=== PATIENT | male | born 2000 | race Caucasian/White ===

== ENCOUNTER 2024-09-12 19:24 | Emergency (ER) | payer OTHER, SELFPAY ==
[2024-09-12 19:36] VITALS: BP 157/94; PULSE 87; RESP 18; TEMP 36.4; O2SAT 99
--- NOTE | 2024-09-12 19:47 | ED.EXTPRO ---
HPI - Extremity Problem General Chief complaint: Extremity Problem,Nontraumatic Stated complaint: foot pain Time Seen by Provider: 09/12/24 19:28 Source: patient Mode of arrival: ambulatory Limitations: no limitations History of Present Illness HPI Narrative: 24-year-old male presents to [facility] with complaints of pain, swelling, erythema and warmth to the base of his right great toe for the past 3 days. Patient reports history of gout and symptoms feel similar. Patient reports he was given prednisone at that time and his symptoms quickly resolved. Patient denies injury to his foot. Patient denies fever, body aches, chills, nausea vomiting or diarrhea. MD Complaint: extremity pain and extremity swelling Onset (ago): day(s) (3) Location: right and lower extremity Exacerbating factors: walking Associated symptoms: denies other symptoms Context: history of gout Related Data Home Medications ?Medication ?Instructions ?Recorded ?Confirmed ?Last Taken ?Type azelastine 137 mcg (0.1 %) nasal 1 spray intranasal Q12H 09/12/24 Unknown History spray fluticasone propionate 50 1 spray intranasal ONCE 09/12/24 Unknown History mcg/actuation nasal spray,suspension (Flonase Allergy Relief) Allergies Allergy/AdvReac Type Severity Reaction Status Date / Time No Known Allergies Allergy Verified 09/12/24 19:36 Review of Systems Constitutional: Constitutional: Denies chills, Denies fatigue, Denies fever(s) and Denies weakness ENT: Denies nasal congestion and Denies sore throat Cardiovascular: Cardiovascular: Denies chest pain Respiratory: Respiratory: Denies cough, Denies dyspnea and Denies wheezing Gastrointestinal: Gastrointestinal: Denies diarrhea, Denies nausea and Denies vomiting Musculoskeletal: Musculoskeletal: Reports arthralgias and Reports joint swelling Comments: Pain, swelling, erythema, warmth to base of right great toe Neurologic: Denies syncope and Denies headache(s) PMFSH Comments At time of signature, I agree with nursing past medical, surgical, social and family history. There is no relevant family history pertinent to the presenting complaint. Exam Const: General: healthy appearing and no acute distress Nutritional Appearance: well nourished Orientation/consciousness: patient oriented x3 Limitations: no limitations HENMT: Head: normal to inspection Eyes: Conjunctivae: conjunctivae normal Neck: Neck: normal visual inspection Resp: Effort & Inspection: normal respiratory effort and not labored Auscultation: clear to auscultation bilaterally, no crackles, no rales and no rhonchi Cardio: Rate: regular rate Rhythm: regular rhythm Heart sounds: no murmurs Skin: Wounds: no wounds Neuro: General: patient oriented x3 Speech: normal speech Other: Mild limp noted with ambulation Extrem: Other: There is mild swelling, warmth and erythema noted to base of right great toe representing likely gout. There is no streaking erythema, bruising, bleeding or open wounds noted Psych: Affect: normal affect Attitude: cooperative Course Course Level of Care: Express Care Visit Vital Signs Vital signs: Vital Signs Temperature 36.4 C 09/12/24 19:36 Pulse Rate 87 09/12/24 19:36 Respiratory Rate 18 09/12/24 19:36 Blood Pressure 157/94 H 09/12/24 19:36 Pulse Oximetry 99 09/12/24 19:36 Oxygen Delivery Room Air 09/12/24 19:36 Temperature 36.4 C 09/12/24 19:36 Pulse Rate 87 09/12/24 19:36 Respiratory Rate 18 09/12/24 19:36 Blood Pressure 157/94 H 09/12/24 19:36 Pulse Oximetry 99 09/12/24 19:36 Oxygen Delivery Room Air 09/12/24 19:36 MDM - Extremity (Nontraumatic) MDM Narrative Medical decision making narrative: Patient denies injury. Patient has history of gout symptoms to similar. Will treat patient with prednisone as prednisone worked well for patient the past. Differential Diagnosis Differential diagnosis: Likely cellulitis and other (Contusion) Critical Care Time Critical Care Time Critical Care Time: No Discharge Plan Discharge Clinical Impression: Gout Qualifiers: Gout site: toe Gout etiology: unspecified cause Chronicity: acute Laterality: right Qualified Code(s): M10.9 - Gout, unspecified Patient Disposition: Home, Self-Care Condition: Stable Instructions: Low Purine Diet (ED), Gout (ED) Additional Instructions: Elevate right foot apply cool compresses to area Take med a Dosepak as prescribed Monitor diet closely Follow-up with primary care provider if symptoms not improved Patient Language: Maltese Prescriptions: New methylprednisolone [Medrol (Remigio)] 4 mg tablets,dose pack See Rx Instructions .ROUTE .COMPLEX Qty: 21 0RF Rx Instructions: orally per package directions methylprednisolone [Medrol (Remigio)] 4 mg tablets,dose pack See Rx Instructions .ROUTE .COMPLEX Qty: 21 0RF Rx Instructions: orally per package directions No Action fluticasone propionate [Flonase Allergy Relief] 50 mcg/actuation spray,suspension 1 spray intranasal ONCE Rx Instructions: administer into each nostril azelastine 137 mcg (0.1 %) spray,non-aerosol 1 spray intranasal Q12H Rx Instructions: administer into each nostril Follow-up/Referrals: PHYSICIAN,4TH GRADE MATH TEACHER [Primary Care Provider] - Time of Disposition: 19:55
== END 2024-09-12 19:58 | disposition home or self-care (01) ==
PROVIDERS: Emergency Provider Nurse Practitioner Family; Referring Provider Emergency Medicine
DX: M10.9 Gout, unspecified (principal)
CPT/HCPCS: 99213; G0463